=== PATIENT | female | born 1975 | race Caucasian/White ===

== ENCOUNTER → 2023-11-21 | Outpatient (CLI) | payer OTHER, SELFPAY ==
--- NOTE | 2023-11-21 14:29 | BI_ITS ---
MAMMOGRAPHY - BILATERAL SCREENING REASON FOR EXAM: Female, 48 years old. Routine annual screening examination. PERTINENT HISTORY: Grandmother with breast cancer. TECHNIQUE: Digital bilateral breast patrice (3D mammographic acquisition) in the CC and MLO projections. 2-D mediolateral oblique (MLO) and craniocaudad (CC) views of both breasts were obtained. CAD: Full Field Digital Mammography with Computer Added Detection was performed. COMPARISON: None. Baseline examination. FINDINGS: Breast Composition: The breasts are extremely dense, which lowers the sensitivity of mammography. There are no dominant masses or suspicious calcifications. No other significant abnormalities are identified. BI/SCRN MAMM (CAD)W/PATRICE BILAT IMPRESSION: Negative screening mammogram. Yearly followup mammogram recommended. (A) ASSESSMENT CATEGORY: BIRADS Category 1: Negative. A letter regarding these results will be sent to the patient by the facility within 30 days. Approximately 10% of breast cancers are not detected by mammography. A normal mammogram should not delay biopsy of a clinically suspicious abnormality. [id number] Electronically Signed: Leroy Kennedy MD at 10:11 EST ,
== END | disposition home or self-care (01) ==
LOC: OPBI 14:28
PROVIDERS: PCP Family Medicine; Referring Provider Family Medicine; Visit Provider Family Medicine
DX: Z12.31 Encounter for screening mammogram for malignant neoplasm of breast (principal)
CPT/HCPCS: 77063; 77067

== ENCOUNTER → 2023-12-12 | Outpatient (CLI) | payer OTHER, SELFPAY ==
[2023-12-12 08:20] LABS: Absolute Lymphocyte Count 2.05 X10^3/uL (0.83-4.51); Absolute Neutrophil Count 2.7 X10^3/uL (2.0-7.7); Basophil# 0.04 X10^3/uL; Basophil% 0.7 % (0-1); Eosinophil# 0.15 X10^3/uL; Eosinophils% 2.7 % (0-5); Hematocrit 42.1 % (37-47); Hemoglobin 13.8 g/dL (12.0-15.0); Lymphocyte # 2.05 X10^3/ul (0.83-4.51); Lymphocyte % 37.3 % (19-41); Mean Corp Hgb Conc 32.8 g/dL (32-36); Mean Corpuscular Hgb 30.5 pg (27.0-32.0); Mean Corpuscular Volume 92.9 fL (81-99); Mean Platelet Vol. 9.6 fl (6.2-12.0); Monocyte# 0.55 X10^3/uL; NRBC Flagged by Analyzer 0 % (0-5); Neutrophil % 49.1 % (47-70); Platelet Count 323 K/mm3 (150-450); RBC Distribution Width CV 12.6 % (11.6-14.6); RBC Distribution Width SD 43.2 fl (35.1-43.9); Red Blood Count 4.53 M/mm3 (4.2-5.4); White Blood Count 5.5 K/mm3 (4.4-11.0)
[2023-12-12 08:38] LABS: Hemoglobin A1c 5.5 % (3.8-5.6)
[2023-12-12 08:54] LABS: Vitamin D,25 Hydroxy 48.4 ng/mL
[2023-12-12 09:06] LABS: ALB/GLOB Ratio 1.1 RATIO (0.9-2.4); AST(SGOT) 21 U/L (15-37); Alanine Aminotransfer ALT/SGPT 25 U/L (13-56); Albumin, Serum 3.5 g/dL (3.2-5.0); Alkaline Phosphatase 76 U/L (45-117); Anion Gap 2 (5-15); BUN 13 mg/dL (7-18); BUN/Creat Ratio 14.7 RATIO (10-20); Calcium,Total 9.8 mg/dL (8.5-10.1); Chloride 110 mmol/L (98-107); Cholesterol 149 mg/dL (200); Creatinine, Serum 0.89 mg/dL (0.55-1.02); EST Glomerular Filtration Rate 72 mL/min (>60); Est Glom Filt Rate - Afr Amer 87 mL/min (>60); Globulin 3.2 g/dL (2.2-4.2); Glucose 113 mg/dL (74-106); High Density Lipoprotein 74 mg/dL; Protein, Total 6.7 g/dL (6.4-8.2); Sodium Level 139 mmol/L (136-145); Thyroid Stim Hormone (TSH) 0.72 uIU/mL (0.358-3.74); Triglycerides 39 mg/dL; Very Low Density Lipoprotein 8 mg/dL (5-40)
== END | disposition home or self-care (01) ==
LOC: LAB 07:46
PROVIDERS: PCP Family Medicine; Referring Provider Family Medicine; Visit Provider Family Medicine
DX: Z02.9 Encounter for administrative examinations, unspecified (principal); R03.0 Elevated blood-pressure reading, without diagnosis of hypertension; E03.9 Hypothyroidism, unspecified; E55.9 Vitamin D deficiency, unspecified
CPT/HCPCS: 36415; 80053; 80061; 82306; 83036; 84443; 85025

== ENCOUNTER → 2024-10-21 | Outpatient (CLI) | payer OTHER, SELFPAY ==
--- NOTE | 2024-10-21 15:37 | MRI_ITS ---
STUDY: MRI BRAIN WITH AND WITHOUT CONTRAST (ATTENTION PITUITARY GLAND) REASON FOR EXAM: Female, 49 years old. MULTIPLE ENDOCRINE NEOPLASIA TYPE 1, BASELINE SCAN TECHNIQUE: Standardized multiplanar fat and water weighted pulse sequences were obtained. IV 15cc clariscan was administered for the contrast portion of the examination. COMPARISON: None. FINDINGS: Pituitary gland and hypothalamus: Top normal size (7.1 mm) of the pituitary gland for the patient?s age and gender. Normal enhancement of the pituitary gland, without a demonstrated intrapituitary lesion. Normal infundibular stalk and suprasellar cistern. Normal optic chiasm and hypothalamus. No visualized nodule or abnormal enhancement hypothalamus. Supratentorial posterior fossa structures: Normal size of the ventricles and extra-axial spaces for the patient''s age. Normal white matter tracts of the supratentorial brain. There is no evidence for recent intracranial ischemia or other cause of cytotoxic edema on diffusion weighted imaging (DWI). There are no demyelinating plagues of the supratentorial brain, brainstem or cerebellum. There are no findings suspicious for multiple sclerosis (MS). Normal bilateral frontal poles, and orbital frontal and gyrus recti of the frontal lobes. Normal bilateral temporal tips of the temporal lobes. There are no white matter shear injuries (diffuse axonal injuries). There are no parenchymal hemorrhages or hematomas. There are no findings to suggest prior closed head parenchymal injury of the brain. Postcontrast images: No abnormal enhancing lesions of the brain parenchyma or abnormal thickening or enhancement meninges or dura. No skull lesions are present. No vasogenic edema or infiltrative process is present. Normal bilateral basal ganglia. Normal thalami. Normal flow voids within the major intracranial circulation suggesting patency by spin echo criteria. Normal venous enhancement. There is no enhancing intra-axial or extra-axial abnormality. There is no extra-axial fluid accumulation. Normal tectal plate and pineal gland. Normal midbrain, jakob and medulla. Normal cerebellum. Normal basal cisterns. Normal bilateral temporal bones. Normal bilateral internal auditory canals. No demonstrated orbital abnormality, within the constraints of a routine brain study. Normal visualized paranasal sinuses. Normal calvarium and skull base. Normal visualized upper cervical spine. Normal visualized soft tissue structures. MRI/Brain W/WO Contrast IMPRESSION: 1. Negative unenhanced and enhanced MRI of the pituitary gland. Electronically Signed: Alonso Campbell MD at 10:07 [facility] ,
--- NOTE | 2024-10-21 15:38 | MRI_ITS ---
STUDY: MRI ABDOMEN WITH AND WITHOUT CONTRAST REASON FOR EXAM: Female, 49 years old. MULTIPLE ENDOCRINE NEOPLASIA TYPE 1, BASELINE SCAN TECHNIQUE: Standardized fat and water weighted pulse sequences were obtained in all 3 orthogonal planes post contrast administration. IV 15cc clariscan was administered for the contrast portion of the examination. COMPARISON: None. FINDINGS: The visualized lung bases are unremarkable. * No adrenal masses or nodules or hypertrophy. No abnormal enlargement or adrenal glands is demonstrated. * No abdominal or retroperitoneal lymphadenopathy is present * No visualized retroperitoneal fibrosis or masses or cysts or fluid collections. * No primary or metastatic lesions of the abdominal organs or omentum or peritoneum. * No primary or metastatic lesions of the bony structures. Normal liver. No liver masses or ductal dilatation. Normal portal vein. Normal gallbladder and extrahepatic biliary system. Normal spleen. Normal pancreas. Normal bilateral adrenal glands. Normal right kidney. Normal left kidney. No hydronephrosis or renal masses. Normal opacification of both kidneys and enhancement. Small simple cysts of the right kidney noted which does not requiring additional imaging or assessment. Normal visualized stomach. Normal small intestine. Normal colon. No bowel dilatation or enhancing masses. Grossly unremarkable abdominal aorta. Normal inferior vena cava. Normal retroperitoneum. Normal abdominal wall. There are diffuse degenerative changes of the visualized lumbar spine. MRI/MRI Abd WITH and W/O Contrast IMPRESSION: Negative unenhanced and enhanced MRI of the abdomen. 1. No adrenal masses or nodules or hypertrophy. No abnormal enlargement or adrenal glands is demonstrated. 2. No abdominal or retroperitoneal lymphadenopathy is present 3. No visualized retroperitoneal fibrosis or masses or cysts or fluid collections. 4. No primary or metastatic lesions of the abdominal organs or omentum or peritoneum. 5. No primary or metastatic lesions of the bony structures. 6. Nuclear medicine paraganglioma/pheochromocytoma MIBG imaging can be performed for detection of small hypermetabolic foci not detected by standard imaging. Electronically Signed: Alonso Campbell MD at 10:00 EST ,
== END | disposition home or self-care (01) ==
LOC: MRI 15:26
PROVIDERS: PCP Family Medicine; Referring Provider Internal Medicine Endocrinology, Diabetes & Metabolism; Visit Provider Internal Medicine Endocrinology, Diabetes & Metabolism
DX: E31.21 Multiple endocrine neoplasia [MEN] type I (principal)
CPT/HCPCS: 70553; 74183; A9575; A4216

== ENCOUNTER 2024-11-29 09:21 | Emergency (ER) | payer OTHER, SELFPAY ==
[2024-11-29 09:22] VITALS: BP 186/108; PULSE 85; RESP 18; TEMP 35.7; O2SAT 100; BMI 29.0
--- NOTE | 2024-11-29 09:42 | CT_ITS ---
INDICATION: Left flank pain EXAMINATION: CT ABDOMEN AND PELVIS WITHOUT CONTRAST - CT Abdomen And Pelvis W/O Contrast Injection TECHNIQUE: Helically acquired images were obtained of the abdomen and pelvis without oral or IV contrast. The protocol utilizes one or more of the following dose reduction techniques: automated exposure control, adjustment of mA and/or kV according to patient size,and/or use of iterative reconstruction technique. IV Contrast dosage and agent: None. Oral contrast: None. RADIATION DOSAGE (If Supplied By Facility): CTDIvol = ( 10.21 ) mGy, DLP = ( 479.58 ) mGycm COMPARISON: MRI of the abdomen dated October 21, 2024 FINDINGS: LOWER CHEST: Lung bases are clear. No cardiomegaly or pericardial effusion. The lack of intravenous contrast limits evaluation of solid visceral organs. LIVER: Homogeneous. No focal mass. GALLBLADDER AND BILIARY TREE: No calcified gallstones. No gallbladder distension or wall edema. No intra- or extrahepatic biliary ductal dilation. PANCREAS: No focal cystic or solid mass. SPLEEN: Normal size without focal cystic or solid mass. ADRENAL GLANDS: No nodules. KIDNEYS, URETERS and URINARY BLADDER: Normal renal size and position. There is left-sided hydroureteronephrosis. There is a 7.5 mm calculus within the posterior urinary bladder left of midline. There are bilateral nonobstructing renal calculi measuring up to 2.6 mm on the right and 5 mm on the left. PERITONEUM: No ascites or free air. No other fluid collection. BOWEL: No evidence of acute appendicitis. No stomach or bowel distension. There are diverticula arising from the colon. No focal inflammatory change. LYMPH NODES: No enlarged mesenteric or retroperitoneal lymph nodes. VESSELS: Aorta is non-dilated. REPRODUCTIVE ORGANS: There is a 4.0 x 3.4 cm round homogeneous soft tissue focus arising from the posterior uterine fundus. ABDOMINAL WALL: No discrete abdominal or pelvic wall hernia. BONES: No lytic or blastic abnormality. CT/Abdomen/Pelvis without Cont IMPRESSION: Left hydroureteronephrosis, likely secondary to recent passage of 7.5 mm calculus visualized within the posterior urinary bladder left of midline. Bilateral nonobstructing renal calculi measuring up to 7.5 mm on the left. 4.0 x 3.4 cm round soft tissue focus arising from the posterior uterine fundus likely reflects a leiomyoma, consider nonemergent pelvic ultrasound for further characterization. Colonic diverticulosis. Electronically Signed: Azucena Bailon MD at 10:31 EST ,
--- NOTE | 2024-11-29 09:56 | ED.VIS.FEGU ---
HPI HPI - Female History of Present Illness Chief Complaint: Flank Pain Narrative Narrative: Chief complaint and HPI: Left flank pain. 49-year-old female with past medical history of hypothyroidism, parathyroidectomy, remote history of nephrolithiasis 20 years ago presents for evaluation of left flank pain. Patient states she developed left flank pain around New Year's Awilda. She states this resolved. She states since then she has been having some suprapubic pressure and increased urinary frequency. She states the increased urinary frequency worsened the last several days. She denies any fever, chills, abdominal pain, nausea, vomiting, diarrhea, constipation. She states she woke up today with left flank pain that has progressively worsened. Denies any chest pain or shortness of breath. Review of systems: See HPI Medications: As listed on the chart Allergies: As listed on the chart PFSH: Per chart Vital signs: As listed on the chart. Reviewed. Physical exam: Gen: A&O x3, no acute distress but uncomfortable secondary to pain, pacing in the room Head: Normocephalic, atraumatic Eyes: No sclera icterus, conjunctiva clear ENT: Moist mucous membranes Neck: Trachea midline, No JVD CV: RRR, no murmurs, no peripheral edema Resp: Lungs CTA BL, no w/r/c GI: Abd soft, non-distended, tender to palpation in the left flank, no r/r/g : No CVA tenderness Musc: Full ROM, no deformity Skin: Warm, dry Neuro: Alert, oriented, grossly intact, sensation intact Psych: Cooperative, appropriate mood and affect [facility] Medications ?Medication ?Instructions ?Recorded ?Last Taken ?Type calcium phosphate,dibasic 77 tab PO 11/29/24 Unknown History mg-vitamin D3 400 unit tablet levothyroxine 75 mcg tablet 75 mcg PO DAILY 11/29/24 Unknown History ondansetron 4 mg disintegrating 4 mg PO Q8H PRN PRN Nausea #10 tabs 11/29/24 Unknown Rx tablet oxycodone-acetaminophen 5 mg-325 1 tab PO Q6H PRN pain 3 days #12 11/29/24 Unknown Rx mg tablet (Percocet) tabs Allergy/AdvReac Type Severity Reaction Status Date / Time erythromycin base (From Allergy Mild Rash Verified 11/29/24 09:22 Erythrocin) Social History Smoking Status: Never smoker EXAM Physical Exam Const Vital Signs: 11/29/24 09:22 11/29/24 11:14 11/29/24 12:14 Temperature 96.3 F L Temperature Source Oral Pulse Rate 85 86 Respiratory Rate 18 16 Blood Pressure 186/108 H 159/94 H 142/92 H Blood Pressure Mean 134 115 108 Pulse Ox 100 97 Oxygen Delivery Method Room Air Room Air MDM MDM MDM Narrative Medical decision making narrative: 49-year-old female with past medical history of hypothyroidism, parathyroidectomy, remote history of nephrolithiasis 20 years ago presents for evaluation of left flank pain. Differential diagnosis includes but is not limited to urolithiasis, nephrolithiasis, UTI, electrolyte abnormality. NS bolus, morphine, Zofran ordered for pain. Abdominal pain workup ordered with CT abdomen pelvis without contrast. CBC without leukocytosis or anemia. BMP with renal insufficiency with creatinine of 1.15. Previous creatinine is from a year ago and was normal at that time. UA positive for blood but negative for UTI. Concern is for urolithiasis. This is new CT abdomen pelvis shows left hydroureteronephrosis likely secondary to recent passage of 7.5 mm calculi is visualized within the posterior urinary bladder left of midline. She has bilateral nonobstructing renal calculi measuring up to 7.5 mm on the left. She has a soft tissue focus arising from the posterior uterine fundus likely reflects a leiomyoma. Consider nonemergent pelvic ultrasound. Colonic diverticulosis. Patient's pain was likely secondary to her passed urolithiasis. Although the calculus is large at 7.5 mm given that it passed through her ureter will likely pass through the urethra. On reexamination, patient is still having some pain but improved from prior. More morphine ordered. On reevaluation, patient's pain has improved and patient is comfortable discharging home. She was educated to drink plenty of fluids and strain her urine for stone. She confirmed understanding. She was referred to urology and told to follow-up with PCP for her possible leiomyoma and outpatient ultrasound. She confirmed understanding. Pain medicine and Zofran ordered as needed for symptoms. Return back to the ED if symptoms change or worsen. She confirmed understand the plan. Patient stable to discharge home. Impression: 1. Previous urolithiasis with passed stone 2. Bilateral nephrolithiasis 3. Renal insufficiency 4. Incidental found likely leiomyoma Lab Data Labs: Laboratory Results - last 24 hr 11/29/24 11/29/24 11/29/24 09:30 09:40 09:50 WBC 9.4 RBC 4.76 Hgb 14.5 Hct 44.3 MCV 93.1 MCH 30.5 MCHC 32.7 RDW Std Deviation 43.4 RDW Coeff of Divina 12.7 Plt Count 398 MPV 9.8 Immature Gran % (Auto) 0.500 Neut % (Auto) 76.6 H Lymph % (Auto) 15.9 L Aiken % (Auto) 5.9 Eos % (Auto) 0.4 Baso % (Auto) 0.7 Absolute Neuts (auto) 7.2 Absolute Lymphs (auto) 1.49 Nucleated RBC % 0 Sodium 140 Potassium 3.8 Chloride 108 H Carbon Dioxide 27.0 Anion Gap 5 BUN 12 Creatinine 1.15 H Estim Creat Clear Calc 54.43 Est GFR (MDRD) Af Amer 64 Est GFR (MDRD) Non-Af 53 L BUN/Creatinine Ratio 10.4 Glucose 139 H Calcium 10.6 H Urine Color Straw Urine Clarity Clear Urine pH 6.0 Ur Specific [place] 1.005 Urine Protein 100 H Urine Glucose (UA) Normal Urine Ketones Negative Urine Occult Blood 150 H Urine Nitrite Negative Urine Bilirubin Negative Urine Urobilinogen Normal Ur Leukocyte Esterase 25 H Urine RBC 0 SEEN Urine WBC 0-5 SEEN Ur Squamous Epith Cells 0 SEEN Urine Bacteria 0 SEEN Urine Mucus 0 SEEN Radiography Diagnostic Testing: Clinical Impression(s) from Imaging Studies Abdomen/Pelvis CT 11/29/24 09:42 IMPRESSION: Left hydroureteronephrosis, likely secondary to recent passage of 7.5 mm calculus visualized within the posterior urinary bladder left of midline. Bilateral nonobstructing renal calculi measuring up to 7.5 mm on the left. 4.0 x 3.4 cm round soft tissue focus arising from the posterior uterine fundus likely reflects a leiomyoma, consider nonemergent pelvic ultrasound for further characterization. Colonic diverticulosis. Electronically Signed: Azucena Bailon MD at 10:31 EST , Discharge Plan Triage Chief Complaint: Flank Pain ED Provider: Denis Briones Dx/Rx/DC Orders Clinical Impression: Urolithiasis, Nephrolithiasis Instructions: ED Kidney Stone, Passed, ED Kidney Stone with Pain Prescriptions: New ondansetron 4 mg tablet,disintegrating 4 mg PO Q8H PRN PRN (Reason: Nausea) Qty: 10 0RF oxycodone-acetaminophen [Percocet] 5-325 mg tablet 1 tab PO Q6H PRN (Reason: pain) 3 Days Qty: 12 0RF No Action levothyroxine 75 mcg tablet 75 mcg PO DAILY calcium phos,dibas-vitamin D3 77-400 mg-unit tablet PO Stand Alone Forms: ED Work / School Excuse Primary Care Provider: Susie Tucker Referrals: Susie Tucker MD [Primary Care Provider] - 3-5 Days Dee Boggs MD [Med Staff - Active Staff] - 3-5 Days Activity Restrictions/Additional Instructions: Return back to the ED if symptoms change or worsen. Call the urology office today to make an appointment. Monitor your urine for passage of stone. Drink plenty of fluids over the next several days. Print Language: Brazilian Disposition Disposition: Home, Self Care Discharge Date/Time: 11/29/24 12:31
[2024-11-29 09:57] LABS: Absolute Lymphocyte Count 1.49 X10^3/uL (0.83-4.51); Absolute Neutrophil Count 7.2 X10^3/uL (2.0-7.7); Basophil# 0.07 X10^3/uL; Basophil% 0.7 % (0-1); Eosinophil# 0.04 X10^3/uL; Eosinophils% 0.4 % (0-5); Hematocrit 44.3 % (37-47); Hemoglobin 14.5 g/dL (12.0-15.0); Lymphocyte # 1.49 X10^3/ul (0.83-4.51); Lymphocyte % 15.9 % (19-41); Mean Corp Hgb Conc 32.7 g/dL (32-36); Mean Corpuscular Hgb 30.5 pg (27.0-32.0); Mean Corpuscular Volume 93.1 fL (81-99); Mean Platelet Vol. 9.8 fl (6.2-12.0); Monocyte# 0.55 X10^3/uL; Monocyte% 5.9 % (0-10); NRBC Flagged by Analyzer 0 % (0-5); Neutrophil # 7.19 X10^3/uL (2.7-7.7); Neutrophil % 76.6 % (47-70); Platelet Count 398 K/mm3 (150-450); RBC Distribution Width CV 12.7 % (11.6-14.6); RBC Distribution Width SD 43.4 fl (35.1-43.9); Red Blood Count 4.76 M/mm3 (4.2-5.4); White Blood Count 9.4 K/mm3 (4.4-11.0)
[2024-11-29] MEDS: Morphine 4 MG/ML Syringe IV ×2 (09:58→11:11)
[2024-11-29] MEDS: Ondansetron 4 MG/2 ML Vial IV (09:58)
[2024-11-29 10:06] LABS: Bacteria 0 SEEN /hpf (None Seen); Mucous, Urine 0 SEEN /hpf (<or=2+); Red Blood Cells-Urine 0 SEEN /hpf (0-5); Squamous Epithelial Cells - UA 0 SEEN /hpf (5-10)
[2024-11-29 10:11] LABS: Glucose, Dipstick Normal (Normal); Ketone-Dipstick Negative (Negative); Leukocyte Esterase-Dipstick 25 /ul (Negative); Nitrite-Dipstick Negative (Negative); Occult Blood-Urine 150 /ul (Negative); Protein-Dipstick 100 mg/dl (Negative); Specific Gravity, Urine 1.005 (1.002-1.030); Urine Bilirubin Dipstick Negative (Negative); Urine Urobilinogen Normal (Normal)
[2024-11-29 10:12] LABS: Color, Urine Straw (Yellow); Urine Clarity Clear (Clear)
[2024-11-29 10:24] LABS: Anion Gap 5 (5-15); BUN 12 mg/dL (7-18); BUN/Creat Ratio 10.4 RATIO (10-20); Calcium,Total 10.6 mg/dL (8.5-10.1); Chloride 108 mmol/L (98-107); Creatinine, Serum 1.15 mg/dL (0.55-1.02); EST Glomerular Filtration Rate 53 mL/min (>60); Est Glom Filt Rate - Afr Amer 64 mL/min (>60); Estimated Creatinine Clearance 54.43 ml/min; Glucose 139 mg/dL (74-106); Potassium 3.8 mmol/L (3.5-5.1); Sodium Level 140 mmol/L (136-145)
[2024-11-29 10:26] LABS: White Blood Cells 0-5 SEEN /hpf (0-5)
[2024-11-29 11:14] VITALS: BP 159/94
[2024-11-29] MEDS: 0.9% Normal Saline (1000mL) 1,000 ML 999 ML IV (11:14)
[2024-11-29 12:14] VITALS: BP 142/92; PULSE 86; RESP 16; O2SAT 97
== END 2024-11-29 12:31 | disposition home or self-care (01) ==
PROVIDERS: Emergency Provider Surgery; PCP Family Medicine; Visit Provider Surgery
DX: N13.2 Hydronephrosis with renal and ureteral calculous obstruction (principal); K57.30 Diverticulosis of large intestine without perforation or abscess without bleeding; E89.0 Postprocedural hypothyroidism; Z79.890 Hormone replacement therapy
CPT/HCPCS: 74176; 80048; 81001; 85025; 96361; 96374; 96375; 96376; 99282; A4216; J2405

== ENCOUNTER → 2024-12-01 | Outpatient (CLI) | payer OTHER, SELFPAY ==
[2024-12-01 16:55] LABS: PTHIN 119.3 pg/mL (18.4-80.1)
[2024-12-01 16:56] LABS: Anion Gap 1 (5-15); BUN 7 mg/dL (7-18); BUN/Creat Ratio 8.2 RATIO (10-20); Calcium,Total 10.3 mg/dL (8.5-10.1); Chloride 106 mmol/L (98-107); Creatinine, Serum 0.86 mg/dL (0.55-1.02); EST Glomerular Filtration Rate 74 mL/min (>60); Est Glom Filt Rate - Afr Amer 90 mL/min (>60); Glucose 109 mg/dL (74-106); Potassium 3.6 mmol/L (3.5-5.1); Sodium Level 138 mmol/L (136-145)
[2024-12-01 16:59] LABS: Vitamin D,25 Hydroxy 53.1 ng/mL
== END | disposition home or self-care (01) ==
LOC: LAB 15:47
PROVIDERS: PCP Family Medicine; Referring Provider Internal Medicine Endocrinology, Diabetes & Metabolism; Visit Provider Internal Medicine Endocrinology, Diabetes & Metabolism
DX: E21.0 Primary hyperparathyroidism (principal); E55.9 Vitamin D deficiency, unspecified

== ENCOUNTER 2024-12-02 11:10 | Day surgery (SDC) | payer OTHER, SELFPAY ==
[2024-12-02] VITALS (7 sets, daily range): BP systolic 111–134; BP diastolic 78–95; PULSE 79–85; RESP 16–20; TEMP 36.1–37.2; O2SAT 98–100; BMI 28.4
--- NOTE | 2024-12-02 10:36 | EX.PCM.DISCH ---
Discharge Instructions Diet Discharge Diet: No restrictions Activity Discharge Activity: Return to Normal Activity May resume sexual activity in: No Restrictions Dressing / Incision Call your doctor if you observe: Fever of 101 or Higher, Inability to urinate and Inability to have a bowel movement Follow Up Care Please Follow Up With: Dee Boggs MD When: The office will call to make follow-up arrangements to be seen in approximately 2 to 3 weeks with a KUB for possible stent removal. Test Results: Test results from this visit will be discussed in further detail at your follow-up appointment, if applicable. Discharge Plan Admission Attending Provider: Dee Boggs Primary Care Provider: Susie Tucker Instructions Print Language: Ukrainian Discharge Orders/Prescriptions Prescriptions: New ondansetron 8 mg tablet,disintegrating 8 mg PO Q8H PRN (Reason: nausea and vomiting) Qty: 10 0RF oxycodone-acetaminophen 5-325 mg tablet 1 tab PO Q8H PRN (Reason: pain) 3 Days Qty: 10 0RF cephalexin 500 mg capsule 500 mg PO Q12 3 Days Qty: 6 0RF phenazopyridine [Pyridium] 200 mg tablet 200 mg PO TID PRN PRN (Reason: Bladder Spasms) 7 Days Qty: 30 3RF Continued levothyroxine 75 mcg tablet 75 mcg PO DAILY calcium phos,dibas-vitamin D3 77-400 mg-unit tablet PO ondansetron 4 mg tablet,disintegrating 4 mg PO Q8H PRN PRN (Reason: Nausea) Qty: 10 0RF oxycodone-acetaminophen [Percocet] 5-325 mg tablet 1 tab PO Q6H PRN (Reason: pain) 3 Days Qty: 12 0RF Referrals / Follow Up: Susie Tucker MD [Primary Care Provider] - Disposition Disposition (needs filled in before D/C Order can be placed): Home, Self Care
--- NOTE | 2024-12-02 10:39 | PCM.OPRPT ---
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 Type of Anesthesia: General RN Documented Start/Stop Times: Operation Date: 12/02/24 13:25 Case Time Into Pre-Op 12/02/24 11:20 Out of Pre-Op 12/02/24 13:48 Anesthesia Start 12/02/24 13:51 Into Room 12/02/24 13:51 Procedure Start 12/02/24 14:06 Procedure Start Time: 14:06 Procedure Stop Time: 14:47 Select all DRAINS/GRAFTS/IMPLANTS that apply: Drains Drain details: 4.5 Ecuadorean by 22 cm JJ stent Estimated Blood Loss: <5cc Specimen collected: Yes Description of specimen(s) removed: ureteral stone fragments Description of surgery: The patient is a 49-year-old female with a large left UVJ and renal stones. She presents for surgical intervention. Informed consent was obtained. She was taken to the operating room and placed on the lithotripsy table. Anesthesia monitored the head, neck, airway, IV access and vital signs throughout the case. Once anesthesia was appropriately administered, she was placed into dorsolithotomy position was prepped and draped in usual sterile fashion. The left ureteral stone had moved distally from her last imaging. The positioning was under the pubic bone. The cystoscope was inserted through the urethra under direct visualization into the urinary bladder. The bladder mucosa was visualized in its entirety finding no evidence of mass, erythema, ulceration or foreign body. The left ureteral orifice was intubated with a 0.035 Glidewire which advanced into the renal pelvis is seen on fluoroscopy. The semirigid ureteroscope was utilized to intubate the distal ureter with a 0.035 Glidewire. It was then secured to the drape using a hemostat. The semirigid ureteroscope was once again advanced into the distal ureter and the stone was identified. It was broken into small fragments using the thulium laser fiber. The fragments were then removed with a stone basket. After all pieces were removed, the ureter remained intact without evidence of injury. A 4 Ecuadorean 22 cm JJ stent was placed over the wire with good positioning in the renal pelvis as well as the urinary bladder. Her bladder was emptied and the cystoscope was then removed. The left renal stones were easily visualized. 2000 shocks were applied to the renal stones and they were no longer visible. She was awakened and taken to the recovery room in good condition. There were no complications during this procedure. Surgical Findings: Stones easily visualized and fragmented Complications Complications: No Admit VTE Documentation VTE Present on Admission: Yes VTE Mechan Device Prophylaxis: SCD's VTE Pharm Prophylaxis ordered?: No Reason prophylaxis not ordered: Treatment Not Indicated
[2024-12-02 11:43] LABS: Internal QC Validated? YES +Cl - CLEAR BKGD; Pregnancy, Urine Negative Negative
[2024-12-02] MEDS: 0.9% Normal Saline (1000mL) 1,000 ML 15 ML IV (12:01)
--- NOTE | 2024-12-02 12:07 | PCM.PRE.AN2 ---
ASA Classification* ASA Classification ASA Classification: 2 Assessment & Plan Anesthesia* Anesthesia Assessment Anesthesia Assessment: Discussed sedation and/or anesthesia options, risks, benefits, and alternatives with patient/parents/legal guardian/POA. Questions invited. The patient/parents/legal guardian/POA seems to understand and agrees to proceed with anesthesia plan. Reviewed the physical assessment, medical history, allergy history and patient home medications list prior to surgery/procedure/anesthetic and documented any changes. Performed airway and anesthesia risk assessments. Anesthesia Type Anesthesia Type: General Anesthesia Focused Assessment* Temperature: 99.0 F Pulse Rate: 79 Blood Pressure: 134/92 Respiratory Rate: 16 Pulse Ox: 100 Airway Assessment Mouth opens: >3 cm Mallampati Score: II Focused Labs Anesthesia Preop lab: CBC WBC 9.4 K/mm3 (4.4-11.0) 11/29/24 09:40 RBC 4.76 M/mm3 (4.2-5.4) 11/29/24 09:40 Hgb 14.5 g/dL (12.0-15.0) 11/29/24 09:40 Hct 44.3 % (37-47) 11/29/24 09:40 Plt Count 398 K/mm3 (150-450) 11/29/24 09:40 CHEMISTRY Potassium 3.6 mmol/L (3.5-5.1) 12/01/24 15:54 Sodium 138 mmol/L (136-145) 12/01/24 15:54 BUN 7 mg/dL (7-18) 12/01/24 15:54 Creatinine 0.86 mg/dL (0.55-1.02) 12/01/24 15:54 Glucose 109 mg/dL (74-106) H 12/01/24 15:54 TSH 0.72 uIU/mL (0.358-3.74) 12/12/23 07:47 COAG Urine Test Negative Negative 12/02/24 11:30 Pre-Assessment Diagnosis/Proposed Procedure Planned Operative Procedure(s): cystoscopy, eswl, laser, basket extraction Anesthesia History Anesthesia History - home health care worker: Anesthesia History - home health care worker Hx Hospitalization No 12/02/24 11:50 Any Problems With Anesthesia Yes: ponv 12/02/24 11:50 Cholinesterase deficiency No 12/02/24 11:50 You/Your Family Experience No 12/02/24 11:50 fever (hyperthermia) with Relationship Recent Exposure to Contagious No 12/02/24 11:44 Disease Does patient have nerve No 12/02/24 11:50 stimulator Patient instructed to have device shut off --Does patient have Pacemaker No 12/02/24 11:44 or ICD? When Was Last Pacemaker Check QUESTION #4 FULL TEXT: You/Your Family Experience fever (hyperthermia) with Anesthesia Last Oral Intake Last Oral intake: Last Oral Intake NPO since 23:00 12/02/24 11:44 Meds taken in AM with sips of No 12/02/24 11:44 water? Meds patient instructed to take am of surgery PONV PONV - home health care worker: PONV - home health care worker Female Yes 12/02/24 11:50 HX of Motion Sickness No 12/02/24 11:50 HX of N/V After Surgery Yes 12/02/24 11:50 Non-Smoker Yes 12/02/24 11:50 Duration of Surgery greater No 12/02/24 11:50 than 60 minutes Number of Risk Factors 3 12/02/24 11:50 PONV Score Moderate Risk 12/02/24 11:50 Height & Weight Height & Weight: Anesthesia: Height & Weight Height 5 ft 2 in 12/02/24 11:44 Weight: 70.5 kg 12/02/24 11:44 Body Mass Index (BMI) 28.4 12/02/24 11:44 Respiratory Assessment Respiratory Assessment - home health care worker: Respiratory Tract Infection Hx - home health care worker Hx Respiratory Tract Infection No 12/02/24 11:50 STOP Sleep Apnea STOP Sleep Apnea - home health care worker: STOP Sleep Apnea - home health care worker Hx Hypertension No 12/02/24 11:50 Hx Sleep Apnea No 12/02/24 11:50 CPAP BIPAP Do you snore loudly (louder No 12/02/24 11:50 than talking or can be heard Do you often feel tired/ No 12/02/24 11:50 fatigued/ sleepy during daytime? Has anyone observed you stop No 12/02/24 11:50 breathing during sleep? STOP Results Negative 12/02/24 11:50 QUESTION #5 FULL TEXT : Do you snore loudly (louder than talking or can be heard through closed doors)? Tobacco Use History Tobacco Use History - home health care worker: Tobacco Use History - home health care worker Tobacco Use Smoking Status Never smoker 12/02/24 11:50 Hx Tobacco Use No 12/02/24 11:50 Years Smoking Packs Smoked per Day Smoking Cessation Date was within the last 15 years Hx Smoking Cessation Date Hx Smoking Cessation Counseling Hematologic Medial History Hematologic Hx - home health care worker: Hematologic Medical Hx - documentation spec Hx of Blood Transfusion No 12/02/24 11:50 Hx of Transfusion in last 3 No 12/02/24 11:50 Months Date of Last Transfusion (if within last 3 months) Ever experience any problems No 12/02/24 11:50 with transfusion(s)? Specify any problems Hx of Preganancy in last 3 No 12/02/24 11:50 Months Nurse Filling Out Transfusion CROBINSON 12/02/24 11:50 & Questions: Date: 12/02/24 12/02/24 11:50 Time: 11:52 12/02/24 11:50 Patient unable to answer at this time (ie. confused, unrespo /Reproduction History /Reproductive History - home health care worker: /Reproductive Hx- home health care worker Hx Now No 12/02/24 11:50 Gestational Age (in weeks): EDC: Hx Hx Para Hx Section SAB Active Medications Active Medications: Current Medications Generic Name Dose Route Start Last Admin Trade Name Freq PRN Reason Stop Dose Admin Sodium Chloride 1,000 mls @ 15 mls/hr 12/02/24 11:35 12/02/24 12:01 IV 12/08/24 00:54 15 mls/hr .Q48H RON Administration Protocol [facility] Medical History MEN 1 (multiple endocrine neoplasia) Thyroid disease Hypoparathyroidism Home Medications ?Medication ?Instructions ?Recorded ?Last Taken ?Type calcium phosphate,dibasic 77 1 tab PO DAILY 11/29/24 Unknown History mg-vitamin D3 400 unit tablet levothyroxine 75 mcg tablet 75 mcg PO DAILY 11/29/24 12/01/24 History ondansetron 4 mg disintegrating 4 mg PO Q8H PRN PRN Nausea #10 tabs 11/29/24 Unknown Rx tablet oxycodone-acetaminophen 5 mg-325 1 tab PO Q6H PRN pain 3 days #12 11/29/24 Unknown Rx mg tablet (Percocet) tabs cephalexin 500 mg capsule 500 mg PO Q12 post-operative 3 12/02/24 Unknown Rx days #6 CAPSULES ondansetron 8 mg disintegrating 8 mg PO Q8H PRN nausea and 12/02/24 Unknown Rx tablet vomiting #10 tabs oxycodone-acetaminophen 5 mg-325 1 tab PO Q8H PRN pain 3 days #10 12/02/24 Unknown Rx mg tablet tabs phenazopyridine 200 mg tablet 200 mg PO TID PRN PRN Bladder 12/02/24 Unknown Rx (Pyridium) Spasms 7 days #30 tabs Allergy/AdvReac Type Severity Reaction Status Date / Time erythromycin base (From Allergy Mild Rash Verified 12/02/24 11:42 Erythrocin) Surgical History H/O parathyroidectomy Social History Smoking Status: Never smoker Review of Systems (Anesthesia) ROS Narrative System reviewed and no additional complaints, except as documented.
--- NOTE | 2024-12-02 13:25 | CALC_PTH ---
PATIENT: CIERRA AGUIRRE LOC: [facility] – [place] U#:[id number] AGE/SX: 49/F ROOM: RE12/02/[address]: Dr. Dee Boggs MD : 1975 BED: DIS: 12/02/2024 SPEC #: [id number] RECD: 12/02/24 14:50 STATUS: DARCIE JAQUAN #: [id number] TANK: 12/02/24 13:[address]: Dee Boggs DEPT: SURGICAL PATHOLOGY RECD BY: Neelima Alfaro ENTERED: 12/03/24 07:14 SP TYPE: Calculi OTHR DR: Susie Tucker MD Tissues: CALCULI Procedures: Surgery Specimen Level I HEADER OPERATION: Left ureteral stent insertion, left renal ESWL PRE-OP DIAGNOSIS: Renal and ureteric calculus, hydronephrosis, flank pain TISSUE SUBMITTED: Left ureteral stone GROSS DIAGNOSIS Fragments of stone, clinically left ureteral stone (gross only). SJ.mr 12/03/2024 COMMENT The specimen is submitted in its entirety for chemical stone analysis. The results from this study will be reported separately. GROSS DESCRIPTION Received without fixative labeled with the patient's name and designated left ureteral calculi. The specimen consists of two fragments of brown stone measuring in aggregate 0.6 x 0.6 x 0.3 cm. The entire specimen is submitted for stone analysis. 12/03/2024 CPT: 19624
[2024-12-02] MEDS: Cefazolin 2 GM in Syringe IV (14:00)
--- NOTE | 2024-12-02 14:59 | PCM.POST.ANE ---
Anesthesia: Postop Eval I Current Vital Signs Temperature: 97 F Pulse Rate: 85 Blood Pressure: 128/86 Respiratory Rate: 20 Pulse Ox: 98 Oxygen Delivery Method: Room Air Assessment Airway patent: Yes Spontaneous unlabored respirations: Yes Mental status: Awake nausea: No Vomiting: No Anesthesia Complication: No Fluid Hydration Crystalloid volume administer (ml): 900 Total IV fluid infused: 900 Progress Note Anesthesia document: Postop Eval 1 completed: Yes
--- NOTE | 2024-12-02 15:12 | POSTOPAN2_ITS ---
Anesthesia Postop Eval I Sum Postop Eval Completion status Anesthesia document: Postop Eval 1 completed: Yes Anesthesia Postop Eval I Summary Anesthesia Postop Eval I Summary: Anesthesia Postop Eval I: Assessment Summary Airway patent Yes 12/02/24 15:00 DIGITAL STRATEGY DIRECTOR.[email or web address] Spontaneous unlabored Yes 12/02/24 15:00 DIGITAL STRATEGY DIRECTOR.JSWI respirations Mental status Awake 12/02/24 15:00 DIGITAL STRATEGY DIRECTOR.JSWI nausea No 12/02/24 15:00 DIGITAL STRATEGY DIRECTOR.JSWI Vomiting No 12/02/24 15:00 DIGITAL STRATEGY DIRECTOR.JSWI Anesthesia Postop Eval I: Fluid Summary Crystalloid volume administer 900 12/02/24 15:00 DIGITAL STRATEGY DIRECTOR.JSWI (ml) Colloids volume administered ( ml) Blood Product volume administered (ml) Total IV fluid infused 900 12/02/24 15:00 DIGITAL STRATEGY DIRECTOR.JSWI Anesthesia Postop Eval I: Summary Notes Anesthesia Complication No 12/02/24 15:00 DIGITAL STRATEGY DIRECTOR.JSWI Anesthesia Complication Comment: Post-operative progress note Anesthesia: Postop Eval II Evaluation Mental status: Awake Pain Level: 0 nausea: No Vomiting: No
--- NOTE | 2024-12-02 15:12 | PCM.POSTANE2 ---
Anesthesia Postop Eval I Sum Postop Eval Completion status Anesthesia document: Postop Eval 1 completed: Yes Anesthesia Postop Eval I Summary Anesthesia Postop Eval I Summary: Anesthesia Postop Eval I: Assessment Summary Airway patent Yes 12/02/24 15:00 DELI/BAKERY [email or web address].[email or web address] Spontaneous unlabored Yes 12/02/24 15:00 DELI/BAKERY ASSOCIATE.[email or web address] respirations Mental status Awake 12/02/24 15:00 DELI/BAKERY ASSOCIATE.JSWI nausea No 12/02/24 15:00 DELI/BAKERY ASSOCIATE.JSWI Vomiting No 12/02/24 15:00 DELI/BAKERY ASSOCIATE.JSWI Anesthesia Postop Eval I: Fluid Summary Crystalloid volume administer 900 12/02/24 15:00 DELI/BAKERY ASSOCIATE.JSWI (ml) Colloids volume administered ( ml) Blood Product volume administered (ml) Total IV fluid infused 900 12/02/24 15:00 DELI/BAKERY ASSOCIATE.JSWI Anesthesia Postop Eval I: Summary Notes Anesthesia Complication No 12/02/24 15:00 DELI/BAKERY ASSOCIATE.JSWI Anesthesia Complication Comment: Post-operative progress note Anesthesia: Postop Eval II Evaluation Mental status: Awake Pain Level: 0 nausea: No Vomiting: No
[2024-12-09 16:08] LABS: Ca Oxalate, Dihydrate 80 % (.); Ca Oxalate, Monohydrate 10 % (.); Calcium Phosphate (hydroxyl) 10 % (.); Size 7x3 mm (.)
== END 2024-12-02 16:53 | disposition home or self-care (01) ==
LOC: SDC 11:12 → AC 11:20
PROVIDERS: PCP Family Medicine; Referring Provider Urology; Visit Provider Urology
PROC: (CPT 50590; principal; 2024-12-02 13:15)
DX: N20.2 Calculus of kidney with calculus of ureter (principal)
CPT/HCPCS: 52356; 00873; 81025; 82360; 88300; J2405

== ENCOUNTER → 2024-12-17 | Outpatient (CLI) | payer OTHER, SELFPAY ==
--- NOTE | 2024-12-17 14:50 | RAD_ITS ---
PROCEDURE: ABDOMEN SINGLE VIEW REASON FOR EXAM: Pain TECHNIQUE: Single view abdomen. COMPARISON: None FINDINGS: Internal left-sided nephroureteral stent. Moderate constipation. Bowel gas pattern is normal. No evidence of bowel obstruction. No suspicious calcifications. The bones are unremarkable. RAD/Abdomen Single View IMPRESSION: As above. Reading Location: [facility]
== END | disposition home or self-care (01) ==
LOC: MTRAD 14:48
PROVIDERS: PCP Family Medicine; Referring Provider Urology; Visit Provider Urology
DX: N20.0 Calculus of kidney (principal)
CPT/HCPCS: 74018

== ENCOUNTER → 2024-12-22 | Outpatient (CLI) | payer OTHER, SELFPAY ==
[2024-12-22 09:14] LABS: Anion Gap 5 (5-15); BUN 11 mg/dL (7-18); BUN/Creat Ratio 10.7 RATIO (10-20); Calcium,Total 10.1 mg/dL (8.5-10.1); Chloride 108 mmol/L (98-107); Creatinine, Serum 1.03 mg/dL (0.55-1.02); EST Glomerular Filtration Rate 60 mL/min (>60); Est Glom Filt Rate - Afr Amer 73 mL/min (>60); Glucose 77 mg/dL (74-106); Sodium Level 139 mmol/L (136-145)
== END | disposition home or self-care (01) ==
LOC: LAB 07:50
PROVIDERS: PCP Family Medicine; Referring Provider Physician Assistant; Visit Provider Physician Assistant
DX: E03.8 Other specified hypothyroidism (principal)
CPT/HCPCS: 36415; 80048

== ENCOUNTER → 2025-01-13 | Outpatient (CLI) | payer OTHER, SELFPAY ==
[2025-01-13 10:47] LABS: PTHIN 97 pg/mL (11-61)
[2025-01-13 10:52] LABS: ALB/GLOB Ratio 1.3 RATIO (0.9-2.4); AST(SGOT) 129 U/L (<=31); Alanine Aminotransfer ALT/SGPT 171 U/L (<=34); Albumin, Serum 3.8 g/dL (3.5-5.0); Alkaline Phosphatase 137 U/L (35-104); Anion Gap 9 (5-15); BUN 12 mg/dL (4-19); BUN/Creat Ratio 13.4 RATIO (10-20); Calcium 9.7 mg/dL (7.6-11.0); Carbon Dioxide 24.2 mmol/L (22.0-29.0); Chloride 104 mmol/L (96-108); Creatinine, Serum 0.9 mg/dL (0.6-1.0); EST Glomerular Filtration Rate 79 (>60); Globulin 2.9 g/dL (2.2-4.2); Glucose 109 mg/dL (70-99); Potassium 4.3 mmol/L (3.3-5.1); Protein, Total 6.7 g/dL (5.9-8.4); Sodium Level 137 mmol/L (133-145); Total Bilirubin 0.53 mg/dL (0.00-1.30); Vitamin D,25 Hydroxy 46.2 ng/mL (30-100)
[2025-01-13 11:13] LABS: Cholesterol 154 mg/dL (<=200); High Density Lipoprotein 75 mg/dL; Low Density Lipoprotein Calc. 64 mg/dL; Triglycerides 77 mg/dL; Very Low Density Lipoprotein 15 mg/dL (5-40); cholesterol:hdl ratio screen 2.06
== END | disposition home or self-care (01) ==
LOC: LAB 08:23
PROVIDERS: PCP Family Medicine; Referring Provider Internal Medicine Endocrinology, Diabetes & Metabolism; Visit Provider Internal Medicine Endocrinology, Diabetes & Metabolism
DX: E03.8 Other specified hypothyroidism (principal); E21.0 Primary hyperparathyroidism; E78.2 Mixed hyperlipidemia; E55.9 Vitamin D deficiency, unspecified
CPT/HCPCS: 36415; 80053; 80061; 82306; 83970; 84443

== ENCOUNTER → 2025-01-19 | Outpatient (CLI) | payer OTHER, SELFPAY ==
[2025-01-19 09:11] LABS: AST(SGOT) 41 U/L (<=31); Alanine Aminotransfer ALT/SGPT 87 U/L (<=34); Albumin, Serum 3.9 g/dL (3.5-5.0); Alkaline Phosphatase 113 U/L (35-104); Bilirubin, Direct 0.18 mg/dL (0.00-0.30); Globulin 2.8 g/dL (2.2-4.2); Protein, Total 6.8 g/dL (5.9-8.4); Total Bilirubin 0.38 mg/dL (0.00-1.30)
== END | disposition home or self-care (01) ==
LOC: LAB 07:57
PROVIDERS: PCP Family Medicine; Referring Provider Internal Medicine Endocrinology, Diabetes & Metabolism; Visit Provider Physician Assistant
DX: R94.5 Abnormal results of liver function studies (principal)
CPT/HCPCS: 36415; 80076

== ENCOUNTER → 2025-07-22 | Outpatient (CLI) | payer OTHER, SELFPAY ==
--- NOTE | 2025-07-22 17:25 | CT_ITS ---
PROCEDURE: CTA HEAD AND NECK W/ CONTRAST 07/22/2025 REASON FOR EXAM: CAROTID CAVERNOUS TECHNIQUE: Procedure Code: CTCTA.HDNCK Modality: CT Procedure: CTA HEAD AND NECK W/ CONTRAST Multiplanar Sagittal and Coronal images were obtained. CONTRAST: Isovue 370 VOLUME: 100 mL One or more dose reduction techniques were used (e.g., Automated exposure control, adjustment of the mA and/or kV according to patient size, use of iterative reconstruction technique). RADIATION DOSE SUMMARY: CTDlvol: 85 mGy DLP: 1475 mGycm FINDINGS: No intracranial mass. No hemorrhage. No edema. No hydrocephalus. Normal caliber of the aortic arch. Normal common carotid arteries. Normal carotid bifurcations. Normal petrous and precavernous carotid arteries. Normal caliber of the cavernous and supraclinoid internal carotid vessels. There is no early opacification of the cavernous sinus to suggest a fistula. Specifically, there is also no enlargement of the superior ophthalmic veins. There are no aneurysms in the [id number]. The basilar tip is normal. There is no evidence of dural sinus thrombosis. There is no proptosis of the globes. There is no orbital hemorrhage. The cervical vertebral arteries are intact without evidence of stenosis or dissection. No discrete masses are seen in the neck CT/CTA Head AND Neck W/ Contrast IMPRESSION: Study within normal limits without evidence carotid cavernous fistula Reading [facility]
== END | disposition home or self-care (01) ==
LOC: CT 17:20
PROVIDERS: PCP Family Medicine; Referring Provider Ophthalmology; Visit Provider Ophthalmology
DX: E31.21 Multiple endocrine neoplasia [MEN] type I (principal); H35.09 Other intraretinal microvascular abnormalities; H10.013 Acute follicular conjunctivitis, bilateral
CPT/HCPCS: 70496; 70498; Q9967; A4216

== ENCOUNTER → 2025-07-25 | Outpatient (CLI) | payer OTHER, SELFPAY ==
[2025-07-25 11:26] LABS: PTHIN 57 pg/mL (11-61)
[2025-07-25 11:39] LABS: AST(SGOT) 29 U/L (<=31); Alanine Aminotransfer ALT/SGPT 25 U/L (<=34); Albumin, Serum 4.2 g/dL (3.5-5.0); Alkaline Phosphatase 78 U/L (35-104); Anion Gap 10 (5-15); BUN 13 mg/dL (4-19); BUN/Creat Ratio 14.7 RATIO (10-20); Calcium,Total 10.5 mg/dL (7.6-11.0); Carbon Dioxide 24.1 mmol/L (21.0-32.0); Chloride 106 mmol/L (98-108); Globulin 2.7 g/dL (2.2-4.2); Glucose 104 mg/dL (70-99); Potassium 4.3 mmol/L (3.3-5.1)
== END | disposition home or self-care (01) ==
LOC: LAB 09:33
PROVIDERS: Referring Provider Physician Assistant; Visit Provider Physician Assistant
DX: E31.21 Multiple endocrine neoplasia [MEN] type I (principal); E03.8 Other specified hypothyroidism; E21.0 Primary hyperparathyroidism
CPT/HCPCS: 36415; 80053; 83970; 84443

== ENCOUNTER → 2025-09-14 | Outpatient (CLI) | payer OTHER, SELFPAY ==
--- NOTE | 2025-09-14 16:15 | BI_ITS ---
EXAM: BI/SCRN MAMM (CAD)W/PATRICE BILAT
== END | disposition home or self-care (01) ==
LOC: OPBI 16:04
PROVIDERS: PCP Internal Medicine; Referring Provider Internal Medicine; Visit Provider Internal Medicine
DX: Z12.31 Encounter for screening mammogram for malignant neoplasm of breast (principal)
CPT/HCPCS: 77063; 77067

== ENCOUNTER → 2025-10-03 | Outpatient (CLI) | payer OTHER, SELFPAY ==
--- NOTE | 2025-10-03 16:18 | US_ITS ---
PROCEDURE: THYROID 10/03/2025 REASON FOR EXAM: NODULAR GOITER TECHNIQUE: Procedure Code: USTHY Modality: US Procedure: THYROID COMPARISON: None FINDINGS: Right thyroid lobe size: 3.2 cm 1.4 cm 0.9 cm. Left thyroid lobe size: 4.1 cm x 0.9 cm 1 cm Isthmus: 0.2 cm Background parenchymal echotexture is homogeneous. Nodules: Inferior to the right lobe of the thyroid, there is a complex nonvascular 1.4 cm 1 cm 0.6 cm solid nodule. This may represent an enlarged parathyroid gland. . Lobe: Left, Location: Superior pole, Size: 0.6 cm x 0.4 cm x 0.4 cm, Stability: N/A Composition: Solid or almost completely solid (+2) Echogenicity: Hypoechoic (+2) Margin: Smooth (+0) Shape: Wider than tall (+0) Echogenic Foci: None (+0) TI-RADS: 4 . Lobe: Left, Location: Midpole, Size: 0.3 cm x 0.2 cm 5.3 cm, Stability: N/A Composition: Solid or almost completely solid (+2) Echogenicity: Hypoechoic (+2) Margin: Smooth (+0) Shape: Wider than tall (+0) Echogenic Foci: None (+0) TI-RADS: 4 US/Thyroid IMPRESSION: There are 2 subcentimeter hypoechoic solid nodules in the left lobe of the thyr oid as described. 12 month follow-up is recommended. 1.4 cm x 1 cm x 0.6 cm complex nodule in the inferior to the right lobe of the thyroid. This may represent a parathyroid gland. Clinical correlation recommended. RECOMMENDATION: Based on most suspicious nodule. Nodule size = largest diameter Only evaluate nodule if =>5 mm. Growth > 20% in 2 dimensions = worsening. Follow up to 4 nodules. Recommend biopsy for no more than 2 nodules. Reading Location: [id number]
== END | disposition home or self-care (01) ==
LOC: US 16:16
PROVIDERS: PCP Internal Medicine; Referring Provider Internal Medicine Endocrinology, Diabetes & Metabolism; Visit Provider Internal Medicine Endocrinology, Diabetes & Metabolism
DX: E04.2 Nontoxic multinodular goiter (principal); E03.8 Other specified hypothyroidism
CPT/HCPCS: 76536